=== PATIENT | female | born 1955 | race Caucasian/White ===

== ENCOUNTER 2024-03-26 12:06 | Emergency (ER) | payer MEDICARE, SELFPAY ==
[2024-03-26] VITALS (9 sets, daily range): BP systolic 182–237; BP diastolic 80–115; PULSE 69–87; RESP 18–20; TEMP 36.6; O2SAT 97–100; BMI 36.2; BMI 35.9
--- NOTE | 2024-03-26 13:06 | EXP.UTC ---
Discharge Plan Prescriptions Prescriptions: No Action No Known Home Medications Referrals Follow up/Referrals: Casimiro Merlos MD [Primary Care Provider] - See instructions Print Language Print Language: Georgian Discharge ED [facility] [place] HPI General Stated complaint: possible cold sore burst on face, sores Mode of Arrival: Ambulatory Source of Information: Patient Limitations: No Limitations Time Seen by Provider: 03/26/24 13:06 Description of Symptoms (Recalled from Triage Doc. by RN): PATIENT STATES SHE IS HAVING A COLD SORE OUTBREAK WITH GUM PAIN AND ALSO C/O HEADACHE. HEENT Symptoms (Recalled from RN notes): Yes Resp Symptoms (Recalled from RN notes): No Skin Symptoms (Recalled from RN notes): No MS Symptoms (Recalled from RN notes): No Functional Status (Recalled from RN notes): WNL History of Present Illness Provider Complaint: 69-year-old female presents for shingles to the right side of the face and lip, headache, and high blood pressure Related Data Home Medications ?Medication ?Instructions ?Recorded ?Confirmed No Known Home Medications 03/26/24 03/26/24 Allergies Allergy/AdvReac Type Severity Reaction Status Date / Time No Known Allergies Allergy Verified 03/26/24 12:52 Worker's Comp Is this a Worker's Comp case?: No [facility] Disclaimer: The information contained in this section may have been updated after the patient was seen, as this information can be updated by other users. Medical History , MONITORING ANALYST) Urinary tract infection Hypertension Surgical History , MONITORING ANALYST) History of tonsillectomy Social History , MONITORING ANALYST) Smoking Status: Never smoker alcohol intake: never current occupational status: retired Travel in the last 8 weeks: None ROS Obtained: Yes Systems reviewed as appropriate & no additional complaints except as documented Constitutional Constitutional: Reports headache(s) ENT Ears, Nose, Mouth, and Throat: Reports headache(s) Integumentary/Breasts Skin/Breast: Reports system reviewed and no additional complaints, except as documented and Reports as per HPI Neurologic Neurologic: Reports system reviewed and no additional complaints, except as documented, Reports as per HPI and Reports headache(s) Physical Exam General General appearance: alert and in no apparent distress Expanded Head Exam Head image: 1. Blisters 2. Red blisters and swelling Eye Eye exam: Present normal appearance and PERRL Respiratory Respiratory exam: Present normal lung sounds bilaterally Cardiovascular Cardiovascular exam: Present regular rate and normal rhythm Neurological Exam Neurological exam: Present alert and oriented X3 Skin Skin exam: Present warm and intact Medical Decision Making Medical Records Medical records reviewed: Yes I reviewed the patient's medical records. Screening: Per USPSTF and CDC recommendations, given the prevalence of disease in our region, it is our hospital?s policy to screen for HIV and viral Hepatitis for all patients aged 18 and over and those with ongoing risk factors. Huan Inquiry Pt receiving controlled substance: No Huan was queried for this patient: No Vital Signs: 03/26/24 12:45 Temperature 97.9 F Temperature Source Oral Pulse Rate [Left Brachial] 87 Respiratory Rate 20 Blood Pressure [Left Arm] 211/108 H Blood Pressure Mean [Left Arm] 142 Blood Pressure Source [Left Arm] Automatic Cuff Blood Pressure Position [Left Arm] Sitting 02 Sat by Pulse Oximetry 98 Oxygen Delivery Method Room Air Lab Data Lab results reviewed: Yes I reviewed the patient's lab results. Physician Consults Physician Consulted: Report given to Chitra Samuel
--- NOTE | 2024-03-26 13:49 | ECG_ITS ---
APPROVED REPORT Exam: Resting ECG HR:75 bpm ECG Measurements Heart Rate 75 AXES PA 158 P 76 QRSd 87 QRS 6 QT 392 T 10 QTc 421 Conclusion SINUS RHYTHM WITH SINUS ARRHYTHMIA LOW QRS VOLTAGE IN PRECORDIAL LEADS [QRS DEFLECTION < 1.0 mV IN CHEST LEADS] No STEMI Electronically signed by : TONO CHUN, 03/27/2024 07:13:52
[2024-03-26] MEDS: ACYCLOVIR 400MG TAB 800 MG PO (13:50)
[2024-03-26] MEDS: ACETAMINOPHEN 500MG TAB 1000 MG PO (13:50)
[2024-03-26] MEDS: DEXAMETHASONE 4MG TABLET 10 MG PO (13:50)
[2024-03-26] MEDS: KETOROLAC 30MG/ML VIAL 30 MG IM (13:51)
--- NOTE | 2024-03-26 13:58 | HMH.EDGENADL ---
Discharge Plan Disposition Patient Disposition: Home, Self-Care Condition: Good Prescriptions Prescriptions: New acyclovir 800 mg tablet 800 mg PO Q4H 7 Days Qty: 42 0RF Rx Instructions: while awake; give 5 doses in 24 hours gabapentin 300 mg capsule 300 mg PO BID PRN (Reason: pain) Qty: 10 0RF ketorolac 10 mg tablet 10 mg PO Q8H PRN (Reason: pain) 3 Days Qty: 12 0RF Referrals Follow up/Referrals: Casimiro Merlos MD [Primary Care Provider] - See instructions Activity Restrictions/Add. Instructions Additional Instructions/Restrictions: You were evaluated in the emergency department today. You were diagnosed with shingles of your face. Please monitor closely for any rash or lesions to the upper part of your face, especially around your eye or nose. Also monitor for any vision changes or eye irritation. Return to the emergency department should you develop any of these issues. medical supply technician your prescriptions at the pharmacy and take them as needed for symptoms. You may also take Tylenol every 4-6 hours at home as needed for pain. Do not drive or operate heavy machinery while taking gabapentin as it can be sedating. Please follow-up closely with your primary care provider for reassessment of your lesions. You were also found to have high blood pressure in the emergency department today. I recommend keeping an eye on your blood pressure at home, taking it twice a day and keeping a log of it. Please follow-up closely with your primary care provider for reassessment of your blood pressure. If you continue to have high blood pressures, it may be beneficial for you to be started on antihypertensive medication. Return to the emergency department right away for new or worsening symptoms. Clinical Impressions Clinical Impression: Shingles rash, High blood pressure Stand Alone Forms Stand Alone Forms: Work/School Release Instructions Patient Instructions: DI for Shingles, DI for High Blood Pressure Print Language Print Language: Rwandan Discharge ED Provider: Chitra Samuel General Adult HPI General Chief complaint: Recheck/Abnormal Lab/Rx Stated complaint: possible cold sore burst on face, sores Time Seen by Provider: 03/26/24 13:06 Mode of Arrival: Ambulatory Source of Information: Patient Limitations: No Limitations Description of Symptoms (Recalled from ER Triage Doc. by RN): pt dx with shingles today on face and is in pain, patient blood pressure was elevated and [facility] sent her over here. pt is alox4 History of Present Illness HPI narrative: This patient is a 69-year-old female with a history of hypertension previously on lisinopril who does not take blood pressure medications because she does not like [employer] presented to the emergency department for evaluation from [facility] with concern for shingles on her face as well as high blood pressure. According to the patient, she started developing tingling on the right side of her face on Sunday and then a rash popped up today. She knows she is having pain on the right side of her face, especially in her right lower lip and lower jaw. No nose, vision irritation, or visual symptoms. She went to [facility] for evaluation with concern that she could just have a cold sore that is gone road, and they noted that her blood pressure was greater than 200 systolic. I had an interactive discussion with [facility] provider who sent her over here with concerns for severe hypertension. Patient notes that she thinks this is because of pain in her face. She notes that she has not taken medication today for pain. No other concerns noted at this time. Related Data Previous Rx's ?Medication ?Instructions ?Recorded acyclovir 800 mg tablet 800 mg PO Q4H 7 days #42 tabs 03/26/24 gabapentin 300 mg capsule 300 mg PO BID PRN pain #10 caps 03/26/24 ketorolac 10 mg tablet 10 mg PO Q8H PRN pain 3 days #12 03/26/24 tabs Allergies Allergy/AdvReac Type Severity Reaction Status Date / Time No Known Allergies Allergy Verified 03/26/24 12:52 [facility] Disclaimer: The information contained in this section may have been updated after the patient was seen, as this information can be updated by other users. Medical History (Reviewed 03/26/24 @ 13:16 by Edward Gracia ([facility]), NURSING INSTRUCTOR) Urinary tract infection Hypertension Surgical History (Reviewed 03/26/24 @ 13:16 by Edward Gracia ([facility]), NURSING INSTRUCTOR) History of tonsillectomy Social History (Updated 03/26/24 @ 13:19 by Edward Gracia ([facility]), NURSING INSTRUCTOR) Smoking Status: Never smoker alcohol intake: never current occupational status: retired Travel in the last 8 weeks: None ROS Obtained: Yes All systems reviewed & no additional complaints except as documented Physical Exam General General appearance: alert and in no apparent distress Head Head exam: atraumatic and normocephalic Expanded Head Exam Head image: 1. Vesicular and erythematous shingles rash in the V3 dermatome distribution of the face. Involvement of the lower mucosa and lower lip with no airway compromise. No nasal or ocular involvement. Eye Eye exam: Present normal appearance, PERRL and EOMI ENT ENT exam: Present mucous membranes moist and normal external ear exam Neck Neck exam: Present normal inspection, full ROM and trachea midline; Absent tenderness Chest Chest inspection: Present normal inspection and symmetric chest wall rise; Absent tenderness Respiratory Respiratory exam: Present normal lung sounds bilaterally; Absent respiratory distress, wheezes, stridor or accessory muscle use Cardiovascular Cardiovascular exam: Present regular rate and normal rhythm Abdominal Exam Abdominal exam: Present soft; Absent distention, tenderness or guarding Extremities Exam Extremities exam: Present normal inspection, full ROM and normal capillary refill; Absent tenderness or edema Back Exam Back exam: Present normal inspection and full ROM; Absent tenderness Neurological Exam Neurological exam: Present alert, oriented X3, CN II-XII intact and normal gait; Absent motor sensory deficit Psychiatric Psychiatric exam: Present normal affect and normal mood Skin Skin exam: Present warm and dry Medical Decision Making Medical Records Medical records reviewed: Yes I reviewed the patient's medical records. Screening: Per USPSTF and CDC recommendations, given the prevalence of disease in our region, it is our hospital?s policy to screen for HIV and viral Hepatitis for all patients aged 18 and over and those with ongoing risk factors. Huan Inquiry Pt receiving controlled substance: Yes Huan was queried for this patient: Yes Risks and benefits of using a controlled substance: were discussed with pt by me Vital Signs: 03/26/24 12:45 03/26/24 13:13 03/26/24 13:23 Temperature 97.9 F Temperature Source Oral Pulse Rate 80 Pulse Rate [Left Brachial] 87 Respiratory Rate 20 Blood Pressure 209/85 H Blood Pressure [Left Arm] 211/108 H 237/115 H Blood Pressure Mean [Left Arm] 142 155 Blood Pressure Source [Left Arm] Automatic Cuff Automatic Cuff Blood Pressure Position [Left Arm] Sitting Sitting 02 Sat by Pulse Oximetry 98 100 Oxygen Delivery Method Room Air 03/26/24 13:26 03/26/24 13:31 03/26/24 13:50 Temperature 97.9 F Temperature Source Oral Pulse Rate 77 70 Pulse Rate [Left Brachial] 78 Respiratory Rate 20 Blood Pressure 216/104 H 206/80 H Blood Pressure [Left Arm] 209/85 H Blood Pressure Mean [Left Arm] 126 Blood Pressure Source [Left Arm] Blood Pressure Position [Left Arm] 02 Sat by Pulse Oximetry 100 98 97 Oxygen Delivery Method Room Air 03/26/24 14:01 03/26/24 14:31 03/26/24 14:39 Temperature 97.9 F Temperature Source Pulse Rate 81 78 69 Pulse Rate [Left Brachial] Respiratory Rate 18 Blood Pressure 213/84 H 182/91 H 187/91 H Blood Pressure [Left Arm] Blood Pressure Mean [Left Arm] Blood Pressure Source [Left Arm] Blood Pressure Position [Left Arm] 02 Sat by Pulse Oximetry 100 99 Oxygen Delivery Method Room Air Lab Data Lab results reviewed: Yes I reviewed the patient's lab results. Orders (Tests/Meds): ED MEDICATIONS Discontinued Medications Generic Name Dose Route Start Last Admin Trade Name Freq PRN Reason Stop Dose Admin Acetaminophen 1,000 mg 03/26/24 13:35 03/26/24 13:50 Acetaminophen 500mg Tab PO 03/26/24 13:36 1,000 mg ONCE ONE Administration Acyclovir 800 mg 03/26/24 13:36 03/26/24 13:50 Acyclovir 400mg Tab PO 03/26/24 13:37 800 mg ONCE ONE Administration Dexamethasone 10 mg 03/26/24 13:40 03/26/24 13:50 Dexamethasone 4mg Tablet PO 03/26/24 13:41 10 mg ONCE ONE Administration Ketorolac Tromethamine 30 mg 03/26/24 13:35 03/26/24 13:51 Ketorolac 30mg/Ml Vial IM 03/26/24 13:36 30 mg ONCE ONE Administration ECG Data Tracing #1: I reviewed this ECG and interpreted as documented below: Normal sinus rhythm with sinus arrhythmia with a ventricular rate of [address] changes concerning for ischemia. Normal axis and intervals ECG initial impression date: 03/26/24 ECG initial impression time: 13:52 Medical Decision Narrative: In summary, this patient is a 69-year-old female presenting to the Emergency Department for evaluation of rash on the face as well as high blood pressure reading at [facility]. Differential diagnoses considered include but are not limited to shingles, hypertension, hypertensive urgency, hypertensive emergency. Ruling out the most morbid conditions drove assessment. It should be noted patient's history includes hypertension and obesity which are not at goal therapy. This complicates all aspects of care by increasing patient's risk for morbidity. On exam, the patient is lying in bed in no acute distress. She complains of pain at the site of her rash, which is consistent with V3 dermatomal distribution of shingles, but no other concerns or complaints. She is neurologically intact. I discussed with patient obtaining basic labs given her severe uncontrolled hypertension to evaluate kidney function, and she declined lab evaluation. She states that her blood pressure is up because of the pain and she does not like taking medications, so she is not on any blood pressure medicines that she was previously prescribed lisinopril. She is agreeable for EKG, which was obtained and reassuring. She has no ocular or nasal involvement of her shingles, so I feel that she is appropriate for outpatient management of this. She was given oral acyclovir, IM Toradol, oral Tylenol, and oral dexamethasone for symptomatic improvement of the pain related to shingles. On reassessment, the patient had improvement in pain and also had improvement in her blood pressure with systolics in the 180s on reassessment. She states she is feeling a lot better. Given this, I feel that she is appropriate for discharge home. I advised that she keep a very close eye on her blood pressure and follow-up closely with primary care, as she may benefit from antihypertensive. I prescribed her acyclovir, gabapentin, and Toradol. She was given very strict return precautions and was discharged after all questions were answered. Critical Care Critical Care Time Critical Care Time: No
== END 2024-03-26 14:45 | disposition home or self-care (01) ==
LOC: UTC 12:29 → ER 13:19
PROVIDERS: Emergency Provider Emergency Medicine; PCP Internal Medicine
DX: I10 Essential (primary) hypertension (principal); B02.9 Zoster without complications; R51.9 Headache, unspecified; R21 Rash and other nonspecific skin eruption; K13.79 Other lesions of oral mucosa
CPT/HCPCS: 93005; 96372; 99283; J1885; J8540

== ENCOUNTER 2025-04-17 09:24 | Outpatient (CLI) | payer MEDICARE, SELFPAY ==
[2025-04-17 13:54] LABS: Hematocrit 30.2 % (37.0-47.0); Hemoglobin 8.4 g/dL (12.2-16.2); Immature Granulocytes % 0 %; Mean Corpuscular HGB Conc 27.8 g/dL (31.8-35.4); Mean Corpuscular Hemoglobin 19.4 pg (27.0-31.2); Mean Corpuscular Volume 69.7 fl (81-99); Nucleated Red Blood Cells % 0 %; Platelet Count 210 K/mm3 (142-424); Red Blood Count 4.33 M/mm3 (4.20-5.40); Red Cell Distribution Width-SD 47.8 fL; White Blood Count 4.8 K/mm3 (4.8-10.8)
[2025-04-17 14:31] LABS: Alanine Aminotransferase 19 U/L (12-78); Albumin Level 4.0 g/dl (3.5-5.0); Albumin/Globulin Ratio 1.7 (1.1-1.8); Alkaline Phosphatase 107 U/L (38-126); Anion Gap 9.3 mEq/L (5-15); Aspartate Amino Transferase 35 U/L (14-36); Bilirubin,Total 0.6 mg/dl (0.2-1.3); Blood Urea Nitrogen 13 mg/dl (7-17); Calcium 9.2 mg/dl (8.4-10.2); Carbon Dioxide 28 mmol/L (22.0-30.0); Chloride 104 mmol/L (98-107); Cholesterol 141 mg/dl (140-200); Creatinine,Serum 0.70 mg/dl (0.52-1.04); Estimated Glomerular Filt Rate 83 ml/min (>60); GFR (African American) 100 ML/MIN (>60); Globulin 2.3 g/dL (1.3-3.2); Glucose 70 mg/dl (74-100); HDL Cholesterol 71 mg/dl (40-60); Iron 43 ug/dL (37-170); Potassium 4.3 mmoL/L (3.5-5.1); Sodium 137 mmol/L (136-145); Total Protein,Serum 6.3 g/dl (6.3-8.2); Triglycerides 59 mg/dl (30-150)
[2025-04-17 14:42] LABS: C-Reactive Protein 1.7 mg/L (0-4); Total Iron Binding Capacity 442 ug/dL (265-497)
[2025-04-17 15:08] LABS: Ferritin 4.62 ng/ml (11.1-264)
[2025-04-17 15:20] LABS: Hepatitis C Ab Qual. W/ RFX NEGATIVE (Negative)
[2025-04-17 15:24] LABS: Vitamin B12 845 pg/mL (239-931)
== END 2025-04-17 23:59 | disposition home or self-care (01) ==
LOC: LAB.DROPOF 04-18 09:24
PROVIDERS: PCP Internal Medicine; Visit Provider Internal Medicine
DX: Z00.00 Encounter for general adult medical examination without abnormal findings (principal); D64.9 Anemia, unspecified; Z13.220 Encounter for screening for lipoid disorders; I10 Essential (primary) hypertension; Z98.84 Bariatric surgery status; R21 Rash and other nonspecific skin eruption; Z11.59 Encounter for screening for other viral diseases; Z11.4 Encounter for screening for human immunodeficiency virus [HIV]
CPT/HCPCS: 80053; 80061; 82607; 82728; 83540; 83550; 85025; 86140; 86803; 87389